=== PATIENT | female | born 1995 | race Caucasian/White ===

== ENCOUNTER 2017-05-24 16:14 | Emergency (ER) | payer MEDICAID ==
[2017-05-24] MEDS: IBUPROFEN 600 MG TAB PO (19:48)
== END 2017-05-24 20:10 | disposition home or self-care (01) ==
LOC: FTE 16:14
DX: R50.9 Fever, unspecified (principal); R05 Cough; R09.89 Other specified symptoms and signs involving the circulatory and respiratory systems
CPT/HCPCS: 99283; Z7502

== ENCOUNTER 2018-12-13 15:15 | Inpatient (IN) | payer OTHER ==
[2018-12-13] MEDS ORDERED: MISOPROSTOL 200 MCG TAB PR (17:00)
[2018-12-13] MEDS ORDERED: METHYLERGONOVINE 0.2 MG INJ IM (17:00)
[2018-12-13] MEDS: LACTATED RINGER'S 1,000 ML IV (17:00)
[2018-12-13] MEDS ORDERED: CARBOPROST 250 MCG INJ IM (17:00)
[2018-12-13] MEDS ORDERED: OXYTOCIN 30 UNITS/LR 500 ML IV ×2 (17:00)
[2018-12-13] MEDS ORDERED: CEFAZOLIN 2 GM/50 ML (PMX) 50 ML IVPB (17:00)
[2018-12-13 17:04] LABS: ADD MAN DIFF? NO
[2018-12-13 17:06] LABS: BASOPHILS % 0.2 % (0.0-2.0); EOSINOPHILS % 0.2 % (0.0-7.0); HEMATOCRIT 31.7 % (37.0-47.0); HEMOGLOBIN 9.8 g/dl (12.0-16.0); LYMPHOCYTES # 1.2 10^3/ul (0.8-2.9); LYMPHOCYTES % 12.7 % (15.0-51.0); MEAN CORPUSCULAR HEMOGLOBIN 26.3 pg (29.0-33.0); MEAN CORPUSCULAR HGB CONC 30.9 g/dl (32.0-37.0); MEAN CORPUSCULAR VOLUME 85.2 fl (82.0-101.0); MEAN PLATELET VOLUME 10.9 fl (7.4-10.4); MONOCYTE # 0.5 10^3/ul (0.3-0.9); MONOCYTES % 5.4 % (0.0-11.0); NEUTROPHIL # 7.4 10^3/ul (1.6-7.5); NEUTROPHILS % 80.7 % (39.0-77.0); NUCLEATED RED BLOOD CELLS% 0.3 /100WBC (0.0-0.0); PLATELET COUNT 321 10^3/UL (140-415); RED BLOOD COUNT 3.72 10^6/ul (4.20-5.40); RED CELL DISTRIBUTION WIDTH 13.8 % (11.5-14.5)
[2018-12-13 17:06] LABS: WHITE BLOOD COUNT 9.1 10^3/ul (4.8-10.8)
[2018-12-13 17:26] LABS: PROTIME 12.3 Sec (11.9-14.9)
[2018-12-13 17:27] LABS: PARTIAL THROMBOPLASTIN TIME 25.2 Sec (23.0-35.0)
[2018-12-13 18:43] LABS: HEPATITIS B SURFACE ANTIGEN NEGATIVE (NEGATIVE)
[2018-12-13] MEDS ORDERED: CITRIC ACID/NA CITRATE 30 ML CUP (22:18)
[2018-12-13] MEDS ORDERED: morphine SULFATE/PF (10 MG/10 ML) INJ (22:22)
[2018-12-13] MEDS ORDERED: METOCLOPRAMIDE 10 MG INJ (22:22)
[2018-12-13] MEDS ORDERED: OXYTOCIN 10 UNIT INJ (22:22)
[2018-12-13] MEDS ORDERED: ALBUTEROL 0.083% (NEB) 2.5 MG/3 ML AMP HHN (23:30)
[2018-12-13] MEDS ORDERED: NALOXONE (0.4 MG/ML) INJ IV (23:30)
[2018-12-13] MEDS ORDERED: ONDANSETRON 4 MG INJ IV ×2 (23:30)
[2018-12-13] MEDS ORDERED: NALBUPHINE HCL (10 MG/1 ML) INJ IV (23:30)
[2018-12-13] MEDS ORDERED: hydrALAzine 20 MG INJ IV (23:30)
[2018-12-13] MEDS ORDERED: DIPHENHYDRAMINE 50 MG INJ IV ×2 (23:30)
[2018-12-13] MEDS ORDERED: morphine 2 MG INJ IV (23:30)
[2018-12-13] MEDS ORDERED: MIDAZOLAM 1 MG/ML 2 ML INJ IV (23:30)
[2018-12-13] MEDS ORDERED: LABETALOL HCL 20MG INJ IV (23:30)
[2018-12-13] MEDS ORDERED: MEPERIDINE 25 MG INJ IV (23:30)
[2018-12-13] MEDS ORDERED: TRIMETHOBENZAMIDE 100 MG/ML VIAL IM ×2 (23:30)
[2018-12-13] MEDS ORDERED: EPHEDrine 25 MG/5 ML SYG IV (23:30)
[2018-12-13] MEDS ORDERED: HYDROmorphONE 1 MG/5 ML IV SYRINGE IV ×3 (23:30)
[2018-12-13] MEDS ORDERED: FENTAnyl 50 MCG/ML VIAL IV ×3 (23:30)
[2018-12-13] MEDS ORDERED: OXYCODONE/ACETAMINOPHEN (5/325) TAB PO ×2 (23:30)
[2018-12-13] MEDS ORDERED: IPRATROPIUM (NEB) 0.5 MG/2.5 ML AMP HHN (23:30)
[2018-12-14] MEDS ORDERED: MISOPROSTOL 200 MCG TAB PR
[2018-12-14] MEDS ORDERED: CEFAZOLIN 2 GM/50 ML (PMX) 50 ML IVPB
[2018-12-14] MEDS ORDERED: NACL 0.9% 3 ML SYG IV
[2018-12-14] MEDS ORDERED: METHYLERGONOVINE 0.2 MG INJ IM
[2018-12-14] MEDS ORDERED: OXYTOCIN 30 UNITS/LR 500 ML IV ×2
[2018-12-14] MEDS ORDERED: CARBOPROST 250 MCG INJ IM
[2018-12-14] MEDS: CITRIC ACID/NA CITRATE 30 ML CUP PO (03:29)
[2018-12-14] MEDS: KETOROLAC 30 MG INJ IV ×3 (04:28→18:49)
[2018-12-14] MEDS: CEFAZOLIN 2 GM/50 ML (PMX) 50 ML IVPB ×2 (09:50→17:19)
[2018-12-14] MEDS: morphine 2 MG INJ IV (16:05)
[2018-12-14 19:51] LABS: ADD MAN DIFF? NO
[2018-12-14 19:55] LABS: WHITE BLOOD COUNT 10.5 10^3/ul (4.8-10.8)
[2018-12-14 19:55] LABS: BASOPHILS % 0.2 % (0.0-2.0); EOSINOPHILS % 0.1 % (0.0-7.0); HEMATOCRIT 28.9 % (37.0-47.0); HEMOGLOBIN 8.9 g/dl (12.0-16.0); LYMPHOCYTES % 9.7 % (15.0-51.0); MEAN CORPUSCULAR HEMOGLOBIN 26.5 pg (29.0-33.0); MEAN CORPUSCULAR HGB CONC 30.8 g/dl (32.0-37.0); MEAN PLATELET VOLUME 10.8 fl (7.4-10.4); MONOCYTE # 0.6 10^3/ul (0.3-0.9); MONOCYTES % 6.1 % (0.0-11.0); NEUTROPHIL # 8.8 10^3/ul (1.6-7.5); NEUTROPHILS % 83.1 % (39.0-77.0); PLATELET COUNT 286 10^3/UL (140-415); RED BLOOD COUNT 3.36 10^6/ul (4.20-5.40); RED CELL DISTRIBUTION WIDTH 13.9 % (11.5-14.5)
[2018-12-14] MEDS: IBUPROFEN 800 MG TAB PO (22:00)
[2018-12-14 22:03] LABS: RAPID PLASMA REAGIN NONREACTIVE (NR)
[2018-12-14] MEDS: OXYCODONE/ACETAMINOPHEN (5/325) TAB PO (23:40)
[2018-12-14] MEDS: ONDANSETRON 4 MG TAB PO (23:40)
[2018-12-15] MEDS: OXYCODONE/ACETAMINOPHEN (5/325) TAB PO ×3 (00:30→18:25)
[2018-12-15] MEDS: CEFAZOLIN 2 GM/50 ML (PMX) 50 ML IVPB (00:32)
[2018-12-15 05:11] LABS: ADD MAN DIFF? NO
[2018-12-15 05:19] LABS: WHITE BLOOD COUNT 12.7 10^3/ul (4.8-10.8)
[2018-12-15 05:19] LABS: BASOPHILS % 0.1 % (0.0-2.0); HEMATOCRIT 27.7 % (37.0-47.0); HEMOGLOBIN 8.5 g/dl (12.0-16.0); LYMPHOCYTES # 1.1 10^3/ul (0.8-2.9); LYMPHOCYTES % 8.7 % (15.0-51.0); MEAN CORPUSCULAR HEMOGLOBIN 26.4 pg (29.0-33.0); MEAN CORPUSCULAR HGB CONC 30.7 g/dl (32.0-37.0); MONOCYTE # 0.5 10^3/ul (0.3-0.9); MONOCYTES % 3.6 % (0.0-11.0); NEUTROPHILS % 86.3 % (39.0-77.0); NUCLEATED RED BLOOD CELLS% 0.2 /100WBC (0.0-0.0); PLATELET COUNT 309 10^3/UL (140-415); RED BLOOD COUNT 3.22 10^6/ul (4.20-5.40)
[2018-12-15] MEDS: LANOLIN HPA 1 PKT TOP (05:50)
[2018-12-15] MEDS: IBUPROFEN 800 MG TAB PO ×3 (05:50→21:55)
[2018-12-16] MEDS: IBUPROFEN 800 MG TAB PO ×3 (05:33→22:36)
[2018-12-16] MEDS: OXYCODONE/ACETAMINOPHEN (5/325) TAB PO (10:15)
[2018-12-16] MEDS: BISACODYL 10 MG SUPP PR ×2 (16:30→17:17)
[2018-12-17] MEDS: OXYCODONE/ACETAMINOPHEN (5/325) TAB PO ×2 (00:37→14:51)
[2018-12-17] MEDS: IBUPROFEN 800 MG TAB PO ×2 (05:51→13:31)
[2018-12-17] MEDS: DIPHTH/TET/ACEL PERTUSS (ADULT) 0.5 ML VIAL IM* (11:36)
== END 2018-12-17 16:25 | disposition home or self-care (01) | DRG 788 ==
LOC: L-D 12-14 00:10 → MS1 12-14 04:28 → PP1 16:43 → L-D 22:54
PROVIDERS: Obstetrics & Gynecology
PROC: 10D00Z1 Extraction of Products of Conception, Low, Open Approach (ICD-10-PCS; principal; 2018-12-13)
DX: O34.211 Maternal care for low transverse scar from previous cesarean delivery (principal); Z3A.39 39 weeks gestation of pregnancy; Z37.0 Single live birth
CPT/HCPCS: 85025; 85610; 85730; 86592; 86850; 86900; 86901; 87340; 90715; 99464